=== PATIENT | male | born 1975 | race Two or more races ===

== ENCOUNTER 2016-07-15 10:21 | Emergency (ER) | payer MEDICAID, OTHER ==
[~2016-07-15] VITALS: Ht 177.8 cm; Wt 99.8 kg
[2016-07-15 10:27] VITALS: BP 112/78
== END 2016-07-15 12:15 | disposition home or self-care (01) ==
LOC: ER 10:21
DX: S39.012A Strain of muscle, fascia and tendon of lower back, initial encounter (principal); X58.XXXA Exposure to other specified factors, initial encounter; Y93.89 Activity, other specified; Y99.8 Other external cause status; Y92.89 Other specified places as the place of occurrence of the external cause

== ENCOUNTER 2017-03-08 13:34 | Emergency (ER) | payer MEDICAID, OTHER ==
[~2017-03-08] VITALS: Ht 177.8 cm; Wt 86.2 kg
[2017-03-08 14:45] VITALS: BP 120/72
[2017-03-08] MEDS ORDERED: KETOROLAC TROMETH 60MG/2ML VIAL IM ONE (15:00)
[2017-03-08] MEDS ORDERED: METHOCARBAMOL 500 MG TAB PO ONE (15:00)
== END 2017-03-08 15:43 | disposition home or self-care (01) ==
LOC: ER 13:34
DX: S39.012A Strain of muscle, fascia and tendon of lower back, initial encounter (principal); X50.9XXA Other and unspecified overexertion or strenuous movements or postures, initial encounter; Y93.89 Activity, other specified; Y92.89 Other specified places as the place of occurrence of the external cause; Y99.8 Other external cause status
CPT/HCPCS: 72100; 96372; 99284; J1885

== ENCOUNTER 2017-05-23 18:14 | Emergency (ER) | payer OTHER ==
[~2017-05-23] VITALS: Ht 177.8 cm; Wt 86.2 kg
[2017-05-23 18:39] VITALS: BP 123/71
== END 2017-05-23 23:32 | disposition home or self-care (01) ==
LOC: ER 18:14
DX: S92.421A Displaced fracture of distal phalanx of right great toe, initial encounter for closed fracture (principal); W19.XXXA Unspecified fall, initial encounter; Y93.89 Activity, other specified; Y92.89 Other specified places as the place of occurrence of the external cause; Y99.8 Other external cause status
CPT/HCPCS: 73660; 99284; L3260

== ENCOUNTER 2019-02-28 11:33 | Emergency (ER) | payer OTHER ==
[~2019-02-28] VITALS: Ht 177.8 cm; Wt 90.7 kg
[2019-02-28 12:00] VITALS: BP 160/84
[2019-02-28] MEDS ORDERED: traMADol HCL 50 MG TAB PO ONE (16:45)
[2019-02-28] MEDS ORDERED: KETOROLAC TROMETH 60MG/2ML VIAL IM ONE (16:45)
== END 2019-02-28 18:26 | disposition home or self-care (01) ==
LOC: ER 11:33
DX: G89.29 Other chronic pain (principal); M54.5 Low back pain
CPT/HCPCS: 72110; 96372; 99283; J1885

== ENCOUNTER 2019-05-13 18:11 | Emergency (ER) | payer OTHER ==
[~2019-05-13] VITALS: Ht 177.8 cm; Wt 90.7 kg
[2019-05-13 18:33] VITALS: BP 116/79
== END 2019-05-13 21:20 | disposition home or self-care (01) ==
LOC: ER 18:11
DX: J06.9 Acute upper respiratory infection, unspecified (principal)

== ENCOUNTER 2019-05-31 20:09 | Emergency (ER) | payer OTHER ==
[~2019-05-31] VITALS: Ht 177.8 cm; Wt 90.7 kg
[2019-05-31 20:18] VITALS: BP 142/97
== END 2019-05-31 23:11 | disposition home or self-care (01) ==
LOC: ER 20:10
DX: L60.0 Ingrowing nail (principal); L03.031 Cellulitis of right toe
CPT/HCPCS: 11730; 73660

== ENCOUNTER 2019-08-02 17:41 | Emergency (ER) | payer OTHER ==
[~2019-08-02] VITALS: Ht 177.8 cm; Wt 86.2 kg
[2019-08-02] MEDS ORDERED: IBUPROFEN 800 MG TAB PO ONE (18:45)
[2019-08-02 19:54] VITALS: BP 145/89
== END 2019-08-02 19:53 | disposition home or self-care (01) ==
LOC: ER 17:43
DX: S39.012A Strain of muscle, fascia and tendon of lower back, initial encounter (principal); X58.XXXA Exposure to other specified factors, initial encounter; Y93.89 Activity, other specified; Y92.89 Other specified places as the place of occurrence of the external cause; Y99.8 Other external cause status
CPT/HCPCS: 72100

== ENCOUNTER 2020-10-30 21:41 | Emergency (ER) | payer OTHER ==
[~2020-10-30] VITALS: Ht 177.8 cm; Wt 90.7 kg
[2020-10-31 01:00] VITALS: BP 120/74
[2020-10-31] MEDS ORDERED: ACETAMINOPHEN 500 MG TAB PO ONE (01:00)
[2020-10-31] MEDS ORDERED: KETOROLAC TROMETH 60MG/2ML VIAL IM ONE (01:00)
== END 2020-10-31 01:52 | disposition home or self-care (01) ==
LOC: ER 21:41
DX: S39.012A Strain of muscle, fascia and tendon of lower back, initial encounter (principal); G89.29 Other chronic pain; X58.XXXA Exposure to other specified factors, initial encounter; Y93.89 Activity, other specified; Y92.89 Other specified places as the place of occurrence of the external cause; Y99.8 Other external cause status
CPT/HCPCS: 96372; 99283; J1885

== ENCOUNTER 2020-10-31 10:23 | Emergency (ER) | payer OTHER ==
[~2020-10-31] VITALS: Ht 177.8 cm; Wt 90.7 kg
[2020-10-31 12:40] VITALS: BP 144/66
== END 2020-10-31 13:40 | disposition home or self-care (01) ==
LOC: ER 10:23
DX: S39.012D Strain of muscle, fascia and tendon of lower back, subsequent encounter (principal); X58.XXXD Exposure to other specified factors, subsequent encounter

== ENCOUNTER 2023-11-15 10:53 | Emergency (ER) | payer MEDICAID, OTHER ==
[~2023-11-15] VITALS: Ht 177.8 cm; Wt 89.2 kg
[2023-11-15 11:59] LABS: Urine Bacteria None Seen /hpf (None Seen)
[2023-11-15 12:27] LABS: Urine Blood Negative /uL (Negative); Urine Clarity Clear (Clear); Urine Color Light-Yellow (Yellow); Urine Protein, UAD Negative (Negative); Urine Specific Gravity 1.029 (1.001-1.035); Urine Urobilinogen Normal (Negative); Urine WBC <1 /hpf (0 - 3)
[2023-11-15 14:44] LABS: Basophils # (auto) 0.1 10 ^3/uL (0-0.2); Basophils % (auto) 0.4 % (0.0-2.0); Eosinophils # (auto) 0 10 ^3/uL (0-0.8); Eosinophils % (auto) 0.3 % (0.0-7.0); Hemoglobin 12.9 g/dL (13.5-17.5); Lymphocytes # (auto) 1.3 10 ^3/uL (0.4-5.4); Lymphocytes % (auto) 10.6 % (10.0-50.0); Mean Corpuscular Hemoglobin 28.1 pg (28.0-32.0); Mean Corpuscular Volume 85.1 fL (80.0-100.0); Monocytes # (auto) 1.1 10 ^3/uL (0-1.3); Monocytes % (auto) 8.4 % (0.0-12.0); Neutrophils # (auto) 10.2 10 ^3/uL (1.6-8.6); Neutrophils % (auto) 80.3 % (37.0-80.0); Nucleated Red Blood Cells % 0.1 %; Red Blood Cells 4.58 10^6/uL (4.5-5.90); Red Cell Distribution Width 13.7 % (11.8-14.3); White Blood Cell 12.7 10^3/uL (4.4-10.8)
[2023-11-15] MEDS ORDERED: MET500T PO (15:12)
[2023-11-15] MEDS ORDERED: CIPR-173 PO (15:12)
[2023-11-15 15:25] LABS: Chloride 108 mmol/L (98-107); Potassium 3.7 mmol/L (3.5-5.1); Sodium 139 mmol/L (136-145)
[2023-11-15 15:26] LABS: Anion Gap 12 (5-15); Calcium 9.4 mg/dL (8.7-10.4); Carbon Dioxide 19 mmol/L (20-30)
[2023-11-15 15:31] LABS: Blood Urea Nitrogen 13 mg/dL (9-23); Glucose 96 mg/dL (74-106); Lipase 32 U/L (12-53)
[2023-11-15 15:41] VITALS: BP 141/82; PULSE 89; RESP 18; TEMP 98.2; O2SAT 96
== END 2023-11-15 15:41 | disposition home or self-care (01) ==
LOC: ER 10:53
DX: K57.92 Diverticulitis of intestine, part unspecified, without perforation or abscess without bleeding (principal)
CPT/HCPCS: 36415; 74176; 80048; 81001; 83690; 85025

== ENCOUNTER 2023-12-27 07:51 | Emergency (ER) | payer MEDICAID ==
[~2023-12-27] VITALS: Ht 177.8 cm; Wt 86.9 kg
[~2023-12-27 07:51] MED LIST: CIPR-173 PO; MET500T PO
[2023-12-27 09:32] VITALS: BP 143/96; PULSE 69; RESP 18; TEMP 97.9; O2SAT 97
[2023-12-27] MEDS ORDERED: IBUP1TAB5 PO (09:33)
[2023-12-27] MEDS ORDERED: CYCL-837 PO (09:33)
[2023-12-27] MEDS: KETOROLAC TROMETH 30 MG/ML 1ML VIAL IM ONE (09:50)
== END 2023-12-27 09:57 | disposition home or self-care (01) ==
LOC: ER 07:51
DX: G57.03 Lesion of sciatic nerve, bilateral lower limbs (principal); M54.2 Cervicalgia; Z79.899 Other long term (current) drug therapy; W20.8XXA Other cause of strike by thrown, projected or falling object, initial encounter; Y93.89 Activity, other specified; Y92.89 Other specified places as the place of occurrence of the external cause; Y99.8 Other external cause status
CPT/HCPCS: 96372; 99283; J1885

== ENCOUNTER 2024-01-24 06:39 | Emergency (ER) | payer SELFPAY ==
[~2024-01-24] VITALS: Ht 177.8 cm; Wt 84.5 kg
[~2024-01-24 06:39] MED LIST changes: +CYCL-837 PO; +IBUP1TAB5 PO
[2024-01-24 07:49] VITALS: BP 132/81; PULSE 65; RESP 16; TEMP 97.8; O2SAT 98
[2024-01-24] MEDS: methylPREDNISolone SOD SUCC 125 MG/2 ML VL IM ONE (08:00)
[2024-01-24] MEDS: KETOROLAC TROMETH 30 MG/ML 1ML VIAL IM ONE (08:00)
[2024-01-24] MEDS ORDERED: MELO7.5T7 PO (08:14)
== END 2024-01-24 08:22 | disposition home or self-care (01) ==
LOC: ER 06:39
DX: M54.16 Radiculopathy, lumbar region (principal); Z79.899 Other long term (current) drug therapy
CPT/HCPCS: 96372; 99284; J1885; J2919